=== PATIENT | female | born 1990 | race Caucasian/White ===

== ENCOUNTER 2017-08-31 07:16 | Inpatient (IN) | payer MEDICAID, SELFPAY ==
[2017-08-31] VITALS (19 sets, daily range): BP systolic 112–133; BP diastolic 55–83; PULSE 64–94; RESP 16–18; TEMP 36.1–37; O2SAT 94–100; BMI 41.1
[2017-08-31] MEDS: Lactated Ringers 1,000 ML 50 ML IV (07:10)
[2017-08-31 07:58] LABS: Absolute Lymphocyte Count 2.13 X10^3/ul (0.83-4.51); Absolute Neutrophil Count 6.7 X10^3/uL (2.0-7.7); Basophil# 0.02 X10^3/uL; Basophil% 0.2 % (0-1); Eosinophil# 0.06 X10^3/uL; Eosinophils% 0.6 % (0-5); Hematocrit 39.3 % (37-47); Hemoglobin 12.6 g/dl (12.0-15.0); Lymphocyte # 2.13 X10^3/ul (4.0); Lymphocyte % 22.2 % (19-41); Mean Corp Hgb Conc 32.1 g/gl (32-36); Mean Corpuscular Hgb 25.7 pg (27.0-32.0); Mean Corpuscular Volume 80.2 fL (81-99); Mean Platelet Vol. 9.8 fl (6.2-12.0); Monocyte# 0.67 X10^3/uL; Neutrophil # 6.69 X10^3/uL (2.7-7.7); Neutrophil % 69.6 % (47-70); Platelet Count 345 K/mm3 (150-450); RBC Distribution Width CV 14.5 % (11.6-14.6); RBC Distribution Width SD 42.1 fl (35.1-43.9); White Blood Count 9.6 K/mm3 (4.4-11.0)
[2017-08-31 08:05] LABS: POSITIVE COUNT NO; POSITIVE DIFFERENTIAL NO; POSITIVE MORPHOLOGY NO
--- NOTE | 2017-08-31 08:09 | NURSING ---
pt is prepped for sx, fhr is 145 iv to right hand #18 gauge flows easily staff in and have introduced themselves
[2017-08-31] MEDS: Lactated Ringers 1,000 ML 100 ML IV ×3 (08:10→22:15)
[2017-08-31] MEDS: Sodium Citrate/Citric Acid 30 ML UDC PO (08:25)
[2017-08-31] MEDS: Cefazolin 2 GM in 0.9% Normal Saline 100 ML IV (08:50)
[2017-08-31] MEDS: Oxytocin 30 units/NS 500 ml 30 UNITS/500 ML IV.SOLN 167 UNITS IV (09:13)
--- NOTE | 2017-08-31 10:11 | OP.PCM_ITS ---
Delivery Final GENNA: 09/06/17 Gestational age: 39 Weeks and 1 Days Indications for : Repeat Elective Description of Procedure: Patient taken to OR where spinal anesthesia was placed. She was prepped and draped in normal sterile fashion in a dorsal lithotomy position with a leftward tilt. After ensuring adequacy of anesthesia the Pfannensteil skin incision was made and carried through to the underlying fascia with a bovie. The fascia was incised in the midline and carried laterally with the Valdez scissors. The rectus muscles were in the midline and the peritoneum was entered bluntly. The bladder flap was dissected down carefully with the Metzenbaum scissors and blunt dissection. The uterus was incised in a transverse fashion and then incision extended with cephalocaudad traction. The fetus was vertex and the head was brought to the incision in the flexed position. With good fundal pressure the head easily delivered. Gentle traction placed on head to allow delivery of anterior & posterior shoulders. No excess traction placed on head. The body delivered easily. The 3VC cord was clamped and cut after 1 minute delay and the handed off to the waiting RN. The placenta was delivered w/ gentle traction and fundal massage and the uterus was exteriorized and cleared of all clots and debris. The uterine incision was closed with 1 vicryl suture in a running locked fashion. The bovie was used to further obtain further hemostasis of the uterine incision. A second imbricating layer of monocryl was placed and one additional figure of 8 suture. The uterus was returned to the peritoneal cavity. The pelvis was irrigated & then cleared of all clots and debris. The uterine incision was reexamined and found to be hemostatic. Some frances was placed over the uterine incision due to the denuded areas. The parietal peritoneum was reapproximated with running 1 vicryl suture. The fascia was closed with looped PDS suture in a running standard fashion. The subcutaneous tissue was examined & any bleeding bovie cauterized. The subcutaneous tissue was reapproximated with 3-0 vicryl suture. The skin was closed in a subcuticular fashion by the PROPERTY PRESERVATION SPECIALIST with me present in the labor and delivery suite. I performed the remainder of the procedure w/ assistance. FINDING: uterus & adnexa normal Amniotic Membrane Rupture Type: Artificial Amniotic Fluid Description: Clear Placenta Disposition: [facility] Drain: Burdick to straight drain Fluids Replaced: 1500ml Cord Entanglement: Around neck x 1, loose Nuchal Cord Compression: Without compression Cord Vessel Description: 3 Vessels Esitmated Blood Loss (ml): 700m Infant Gender: Male (1 minute): 8 (5 minute): 9 Delayed cord clamping: Yes Pre-op Antibiotic Given: Ancef 2 grams IV x1
[2017-08-31] MEDS: Ondansetron 4 MG/2 ML Vial IV (13:53)
--- NOTE | 2017-08-31 14:31 | CPS ---
nursing to start
[2017-08-31] MEDS: Ketorolac 30 MG/ML Syringe IV ×2 (15:19→22:15)
[2017-09-01] VITALS (9 sets, daily range): BP systolic 116–142; BP diastolic 47–73; PULSE 79–92; RESP 16–18; TEMP 36.4–36.9; O2SAT 96–99
[2017-09-01] MEDS: DiphenhydrAMINE 25 MG Capsule PO (01:37)
--- NOTE | 2017-09-01 02:19 | NURSING ---
1999 pt passed golf ball size clot. FF @ U, pericare completed, no additional bldg noted. Pt moving well with pad and linen changes.
[2017-09-01] MEDS: Naproxen 250 MG Tablet PO ×2 (03:49→12:07)
[2017-09-01 06:15] LABS: Hematocrit 33.7 % (37-47); Hemoglobin 10.7 g/dl (12.0-15.0); Mean Corp Hgb Conc 31.8 g/gl (32-36); Mean Platelet Vol. 9.4 fl (6.2-12.0); Platelet Count 228 K/mm3 (150-450); RBC Distribution Width CV 14.7 % (11.6-14.6); RBC Distribution Width SD 43.8 fl (35.1-43.9); Red Blood Count 4.11 M/mm3 (4.2-5.4); White Blood Count 10.2 K/mm3 (4.4-11.0)
[2017-09-01 06:16] LABS: Scan Indicated on CBC? Y/N NO
--- NOTE | 2017-09-01 08:47 | PCM.PN.BLA ---
Progress Note S: Patient sitting up in bed, working with nursing staff at this time on . Baby had difficulty latching throughout the night, recommendation for formula supplementation made by nursing staff. Patient otherwise denies issues, reports that her pain is well controlled. Has not been up to bathroom yet or had opportunity to ambulate regularly. Patient reports fatigue and that she didn't sleep a lot last night. O: VSS, Afebrile Nipples flat, widely spaced apart breasts noted. + colostrum noted. No cracks, blisters noted. Abdomen NT, dressing dry and intact Trace pedal edema, non-pitting Burdick draining clear yellow urine A: 26 y/o, POD #1, Difficulties P: 1) Continue present management 2) Consultation today Desire Dos Santos CNM
[2017-09-01] MEDS: Acetaminophen 500 MG Tablet 1000 MG PO ×2 (11:19→19:16)
[2017-09-01] MEDS: Senna/Docusate Sodium 1 Tablet PO (19:22)
[2017-09-02] VITALS (11 sets, daily range): BP systolic 124–159; BP diastolic 63–77; PULSE 67–82; RESP 14–16; TEMP 36.2–36.5; O2SAT 97–98
[2017-09-02] MEDS: Naproxen 250 MG Tablet PO ×2 (00:12→12:10)
[2017-09-02] MEDS: Acetaminophen 500 MG Tablet 1000 MG PO (03:11)
--- NOTE | 2017-09-02 08:55 | PN.OBGYN_ITS ---
Subjective: No complaints - Physical Exam General: Alert, Oriented x3 Abdomen: Soft, Non Tender, Non-Distended - ff mid & below umb; incision - bandage c/d/i Extremities: No Calf Tenderness Vital Signs Temp Pulse Resp BP Pulse Ox 97.1 F L 78 14 159/73 H 97 09/02/17 08:00 09/02/17 08:22 09/02/17 08:22 09/02/17 08:00 09/02/17 08:22 Oxygen Delivery Method Room Air Weight: 255 lb 4 oz Body Mass Index (BMI) 41.1 Intake and Output for Last 24 Hours 08/31/17 09/01/17 09/02/17 23:59 23:59 23:59 Intake Total 1480 / 1480 217 / 217 Output Total 900 / 900 3250 / 3250 Balance 580 / 580 -3033 / -3033 Assessment/Plan 26yo female POD#2 Possible d/c home later today per patient request BP - last BP elevated but may be error, check additional BPs & if normal will d/ c home
--- NOTE | 2017-09-02 08:56 | DCINST_ITS ---
Discharge Diet: No Restrictions Discharge Activity: May not drive while taking narcotic pain medications., May Shower May resume sexual activity in: 4-6 weeks Weight Bearing Status: Weight bearing as tolerated Call your doctor if your incision/area has: Continuous Slow Oozing, Sudden Increased Bleeding, Increased Pain/ Swelling, Increased Redness, Foul Smelling Discharge, Swelling at the incision site Additional Instructions: If you experience any of the following, contact your healthcare provider. * Bleeding that soaks a pad every hour for 2 hours * Fever 100.4 or higher * Unrelieved incision or abdominal pain * Swelling, redness, discharge or bleeding from your incision or episiotomy site * Your incision begins to separate * Problems urinating (including inability to urinate or burning while urinating) . * Visual changes * Severe headache * Flu-like symptoms * Pain or redness in one of both of your breasts * Pain, warmth, tenderness or swelling in your legs, especially the calf area * Frequent nausea and vomiting * Symptoms of depression or anxiety If you experience any of the following, call 911 or go to the nearest Emergency Room. * Chest pain * Problems breathing * Seizure activity * Partial or complete paralysis of a body part, slurred speech, weakness or drooping of the face, or a sudden inability to walk or hold your balance Allergies/Adverse Reactions: Allergies No Known Allergies Allergy (Verified 07/29/14 14:51) Medications to take at Discharge Dicyclomine HCl [Bentyl] 20 mg PO 4X/DAY PRN #20 tablet 07/29/14 Diphenoxylate HCl/Atropine [Lomotil 2.5-0.025 mg Tablet] 2 each PO 4X/DAY PRN PRN #20 tablet 07/29/14 Docosahexanoic Acid [ Dha] 200 mg PO DAILY 08/24/17 Oxycodone [Oxyir] 5 mg PO Q4H PRN PRN 7 Days #10 tab 09/02/17 The following prescriptions were given: Oxycodone [Oxyir] 5 mg PO Q4H PRN PRN 7 Days #10 tab PRN Reason: Mod-Severe Pain (-04/13) Follow-Up: Call to make an appointment with your doctor for an incision check in 1-2 weeks. You will also need a 6 week post- follow up appointment. Primary Care Physician: Placido Mesa DO [Primary Care Provider] -
[2017-09-02 11:59] LABS: Hematocrit 33.7 % (37-47); Hemoglobin 10.5 g/dl (12.0-15.0); Mean Corp Hgb Conc 31.2 g/gl (32-36); Mean Corpuscular Hgb 25.9 pg (27.0-32.0); Mean Platelet Vol. 9.2 fl (6.2-12.0); Platelet Count 265 K/mm3 (150-450); RBC Distribution Width CV 14.9 % (11.6-14.6); RBC Distribution Width SD 45.2 fl (35.1-43.9); Red Blood Count 4.06 M/mm3 (4.2-5.4); Scan Indicated on CBC? Y/N NO; White Blood Count 9.8 K/mm3 (4.4-11.0)
[2017-09-02 12:10] LABS: Prothrombin Time (Protime)PT. 12.9 SECONDS (11.7-14.9)
[2017-09-02 12:11] LABS: Partial Thromboplast Time 28.2 Seconds (24.1-36.2)
[2017-09-02 12:14] LABS: AST(SGOT) 14 U/L (15-37); Alanine Aminotransfer ALT/SGPT 11 U/L (13-56); Creatinine, Serum 0.59 mg/dL (0.55-1.02); EST Glomerular Filtration Rate 130 mL/min (>60); Est Glom Filt Rate - Afr Amer 157 mL/min (>60); Estimated Creatinine Clearance 134.08 ml/min; Uric Acid 5.3 mg/dL (2.6-6.0)
== END 2017-09-02 16:15 | disposition home or self-care (01) | DRG 371 ==
PROVIDERS: Admitting Provider Obstetrics & Gynecology; Family Provider Student in an Organized Health Care Education/Training Program; PCP Student in an Organized Health Care Education/Training Program; Visit Provider Obstetrics & Gynecology
DX: O34.211 Maternal care for low transverse scar from previous cesarean delivery (principal); O69.81X0 Labor and delivery complicated by cord around neck, without compression, not applicable or unspecified; Z37.0 Single live birth; Z3A.39 39 weeks gestation of pregnancy
CPT/HCPCS: 82565; 84450; 84460; 84550; 85025; 85027; 85610; 85730; 86850; 86900; 94762; 99218; J7120; G0378; J2405

== ENCOUNTER 2017-09-27 23:18 | Emergency (ER) | payer MEDICAID, SELFPAY ==
[2017-09-27 23:18] VITALS: BP 162/85; PULSE 70; RESP 18; TEMP 36.9; O2SAT 96; BMI 37.8
--- NOTE | 2017-09-27 23:42 | ED.DCSUM_ITS ---
- ER Visit Summary Date of Service: 09/27/17 Chief Complaint: [] Upper abdominal pain History of Present Illness: The patient is a 26 F dense with intermittent episodes of epigastric abdominal pain. Happened Wednesday for 20 minutes went away. Happened tonight approximately an hour ago and it finally went away after taking Tylenol. She ate pudding at 9 PM. Intermittent sharp and pressure. Worsened by laying down so she was some mild nausea. She had a C- section on the of this month. It has been healing without problems currently Physical Examination: Vital signs reviewed General: Well-nourished well-developed Head: Normocephalic atraumatic Eyes: Pupils equal round and reactive to light extraocular movements intact ENT: TMs clear no hemotympanum no trauma Neck: Nontender full range of motion Cardiovascular: Regular rate rhythm no murmurs normal S1-S2 Respiratory: No distress clear to auscultation bilaterally chest nontender Abdomen: Soft nontender nondistended normal bowel sounds no masses Back: Nontender no CVA tenderness Extremities: Nontender active range of motion ?4 extremities no trauma Skin: Normal color no trauma Neuro alert oriented cranial nerves II through XII intact normal strength sensation reflexes Test Results: [] Emergency Department Course and Treatment: [] At this time I think the patient has biliary colic. She is nontoxic. I do not feel she needs lab work. There is going to be no evidence of cholecystitis. She would like to go home to her baby is her pain resolved. She can follow-up with her family doctor for an ultrasound. It is too late to do this currently. She will return if it worsens or comes back. Will be given a short course of Percocet. Treatment Plan: [] Disposition: [] Impression: [] Upper abdominal pain suspected biliary colic This note was generated with [employer] dictation software. It may contain incorrect words, spelling, and punctuation that were not noted in review of the chart prior to signing ED Disposition - Plan for ED Patient: Chief Complaint: Abd Pain Referrals: Placido Mesa DO [Primary Care Provider] -
--- NOTE | 2017-09-27 23:44 | DCINST.ED_ITS ---
ED Disposition - Plan for ED Patient: Disposition: Home or Assisted Living Chief Complaint: Abd Pain Instructions: ED Abdominal Pain Gallstone Poss Prescriptions: Oxycodone HCl/Acetaminophen [Percocet 5/325] 1 - 2 tab PO Q6H PRN PRN 3 Days # 12 tab PRN Reason: Pain Referrals: Placido Mesa DO [Primary Care Provider] -
[2017-09-27 23:49] VITALS: BP 117/74; PULSE 80; RESP 16; O2SAT 99
== END 2017-09-27 23:49 | disposition home or self-care (01) ==
PROVIDERS: Emergency Provider Emergency Medicine; Family Provider Student in an Organized Health Care Education/Training Program; PCP Student in an Organized Health Care Education/Training Program
DX: R10.13 Epigastric pain (principal); R11.0 Nausea
CPT/HCPCS: 99282

== ENCOUNTER 2021-01-23 16:43 | Emergency (ER) | payer OTHER, SELFPAY ==
[2021-01-23 16:45] VITALS: BP 128/84; PULSE 76; RESP 16; TEMP 36.8; O2SAT 97; BMI 41.4
--- NOTE | 2021-01-23 16:58 | CT_ITS ---
STUDY: CT ABDOMEN AND PELVIS WITH CONTRAST REASON FOR EXAM: Female, 30 years old. abdominal pain -- IV PO Contrast RADIATION DOSAGE (If Supplied By Facility): CTDIvol = ( 16.14 ) mGy, DLP = ( 1147.11 ) mGycm TECHNIQUE: Transaxial images were obtained from the dome of the diaphragm to the symphysis pubis without oral contrast. Oral and amp; IV Breeza Neutral and amp; 100mL Isovue-370 was administered. Sagittal and coronal images were reconstructed. Individualized dose optimization techniques were used for this CT. COMPARISON: None. FINDINGS: Lung bases are clear. Unremarkable liver, spleen, pancreas, adrenals, and bilateral kidneys. Gallbladder not seen and likely removed. Normal appendix. Bowel loops nonobstructed. An approximately 11.8 x 8.6 x 12.1 cm adnexal cystic lesion anterior and superior to the uterus midline. This is amenable to further evaluation by MRI. Also, gynecologic consultation recommended. There is a 2.6 cm likely cyst in the right ovary. The bladder incompletely distended. No free air or free fluid. No adenopathy. Intact osseous structures. CT/Abdomen/Pelvis WITH Contrast IMPRESSION: Large cystic adnexal lesion anterior and superior to the uterus. Both benign and malignant ovarian neoplasms and peritoneal inclusion cysts are in the differential diagnosis. Further evaluation by MRI and also gynecologic consultation is recommended. Electronically Signed: Dalton Coreas MD at 19:16 EDT Tel , Service support ,
--- NOTE | 2021-01-23 16:59 | ED.VIS.GI ---
HPI HPI - GI History of Present Illness Chief Complaint: Abd Pain Detail of Chief Complaint: Abdominal pain x2 months Informant: patient Abdominal Pain/Flank Pain Current Severity: 5/10 Narrative Narrative: Patient presents to the emergency department complaint of abdominal pain that she has had for the last 2 months. Patient was seen at urgent care and was told she may have sciatica. Patient then followed up with her beauty specialist who ordered a CAT scan but she cannot have it for several more weeks. Patient describes some left lower quadrant pain that is continuous and then intermittently has severe sharp pain in her back on the left. Patient denies urinary symptoms. She is had no fever. When the pain is severe she describes nausea. Food does not affect her pain. Patient's had prior cholecystectomy. She was told when she had her gallbladder out that a little like she may have endometriosis. Patient's last menstrual period was January 07. Prior similar symptoms: Yes PFSH PFSH Medical History (Updated 01/23/21 @ 20:[address] Pacheco Burgos, DO) Migraine Home Medications hydrocodone-acetaminophen 1 tab PO Q4H PRN PRN 2 Days #10 tablet 01/23/21 [Rx Last Taken Unknown] norethindrone (contraceptive) 0.35 mg PO DAILY 01/23/21 [History Last Taken Unknown] ondansetron 4 mg PO Q8H PRN PRN #10 tab 01/23/21 [Rx Last Taken Unknown] pantoprazole 40 mg PO DAILY 01/23/21 [History Last Taken Unknown] topiramate 25 mg PO DAILY 01/23/21 [History Last Taken Unknown] Allergy/AdvReac Type Severity Reaction Status Date / Time hydromorphone [From Dilaudid] Allergy Rash Verified 01/23/21 16:45 morphine Allergy Rash Verified 01/23/21 16:45 Surgical History (Updated 01/23/21 @ 17:12 by Doug Cheney) History of History of cholecystectomy Social History Smoking Status: Never smoker ROS ROS ED Constitutional Constitutional ED: Reports systems reviewed and no addt'l complaints, except as documented; Denies body ache(s), change in weight or chills Eyes Eyes: Denies acute decrease in peripheral vision, change in vision, double vision or loss of vision ENT ENT ED: Reports none; Denies ear pain, lip swelling, loss taste/smell, neck pain, otalgia or sore throat Cardiovascular Cardiovascular: Reports none; Denies abdominal pain, chest pain with activity, leg edema, lightheadedness, palpitations, rapid heart rate or syncope Respiratory/Chest Respiratory/Chest: Reports none; Denies change in mental status, dry cough, dyspnea, hemoptysis, shortness of breath at rest or shortness of breath with exertion Gastrointestinal Gastrointestinal: Reports none, abdominal pain and nausea; Denies change in stool character, diarrhea, hematemesis, hematochezia, melena, rectal bleeding or vomiting Genitourinary Genitourinary ED: Reports none; Denies abdominal discomfort, anuria, dysuria, genital pain or polyuria Musculoskeletal Musculoskeletal: Reports none; Denies arthralgias, back pain, difficulty walking, extremity pain, muscle weakness or myalgias Integumentary Reports none; Denies abscess or rash Neurologic Neurologic: Reports none; Denies abnormal gait, confusion, focal weakness, frequent falls, headache(s), loss of vision, numbness, paresthesias, radicular pain, vertigo or weakness Psychiatric Psychiatric: Reports systems reviewed and no addt'l complaints, except as documented and none; Denies behavioral changes, confusion, difficulty concentrating, hallucinations, suicidal ideation, tactile hallucinations or visual hallucinations Endocrine Endocrinology: Denies none, cold intolerance, excessive sweating, fatigue or heat intolerance Hematologic/Lymphatic Hematologic/Lymphatic: Reports none; Denies anemia, easy bleeding or easy bruising Allergic/Immunologic Allergic/Immunologic ED: Denies as per HPI, none, lip swelling, mouth swelling, throat swelling, tongue swelling or hives EXAM Physical Exam Const Vital Signs: 01/23/21 16:45 01/23/21 19:47 Temperature 98.2 F Temperature Source Oral Pulse Rate 76 77 Respiratory Rate 16 18 Blood Pressure 128/84 H 140/89 H Blood Pressure Mean 98 106 Pulse Ox 97 99 Oxygen Delivery Method Room Air Room Air Positive well nourished and well developed General Appearance ED: well developed and NAD HEENT Reports TM's clear and moist mucous membranes normocephalic and atraumatic; Negative for trauma or tenderness Tympanic Membrane ED: Yes TM's clear Eyes PERRL and EOMs intact bilaterally General Eye ED: Negative for pale conjunctiva or scleral icterus Neck no lymphadenopathy, supple and no JVD General: Negative for tenderness Chest Wall inspection of chest normal and palpation of chest normal Chest: Negative for tenderness Resp normal respiratory effort and clear to auscultation bilaterally Effort and Inspection: Negative for respiratory distress or pain with movement Auscultation: Negative for rhonchi, wheezes or diminished lung sounds Cardio regular rate, regular rhythm, S1 normal heart sound, S2 normal heart sound and no murmurs Peripheral Pulses: pulses 2+ throughout GI normal to inspection, nondistended, normoactive bowel sounds, soft to palpation and no masses GI Narrative: Patient has diffuse tenderness palpation over left lower quadrant and suprapubic region. There is no rebound, rigidity, or peritoneal signs. Palpation: tender Back/Spine no CVA tenderness and no thoracic nor lumbar tenderness Extremity normal to inspection General Extremety ED: Negative for edema General Extremity: Negative for edema Neuro oriented x3, CN's II-XII intact bilaterally, no sensory deficits noted and gait normal Sensorium / Orientation: awake, alert, oriented to person, oriented to place and oriented to time Motor Exam: strength 5/5 throughout and strength abnormal Psych mental status grossly normal Skin no rashes or lesions noted and no wounds MDM MDM MDM Narrative Medical decision making narrative: Patient has a large adnexal cystic mass on CT. Case was discussed with SP[employer]ING [employer]AME TENDER on-call Dr. Tanner and she has that patient call the office tomorrow for an appointment. It was recommended that patient have SPINNING FRAME TENDER follow-up and possibly MRI to evaluate further. Lab Data Attestation: I reviewed the patient's lab results. Labs: Laboratory Results - last 24 hr 01/23/21 01/23/21 01/23/21 17:10 17:10 17:10 WBC 9.4 RBC 4.96 Hgb 13.7 Hct 42.0 MCV 84.7 MCH 27.6 MCHC 32.6 RDW Std Deviation 41.7 RDW Coeff of Ilia 13.6 Plt Count 341 MPV 9.4 Immature Gran % (Auto) 0.300 Neut % (Auto) 69.8 Lymph % (Auto) 21.0 [place] % (Auto) 6.7 Eos % (Auto) 1.6 Baso % (Auto) 0.6 Absolute Neuts (auto) 6.6 Absolute Lymphs (auto) 1.97 Nucleated RBC % 0 Sodium 140 Potassium 3.6 Chloride 110 H Carbon Dioxide 22.0 Anion Gap 8 BUN 13 Creatinine 0.93 Estim Creat Clear Calc 82.05 Est GFR (MDRD) Af Amer 91 Est GFR (MDRD) Non-Af 75 BUN/Creatinine Ratio 14.0 Glucose 104 Lactic Acid 1.3 Calcium 8.8 Lipase 99 Serum , Qual Urine Color Urine Clarity Urine pH Ur Specific [place] Urine Protein Urine Glucose (UA) Urine Ketones Urine Occult Blood Urine Nitrite Urine Bilirubin Urine Urobilinogen Ur Leukocyte Esterase Urine RBC Urine WBC Ur Squamous Epith Cells Urine Bacteria Urine Mucus 01/23/21 01/23/21 17:10 17:55 WBC RBC Hgb Hct MCV MCH MCHC RDW Std Deviation RDW Coeff of Ilia Plt Count MPV Immature Gran % (Auto) Neut % (Auto) Lymph % (Auto) [place] % (Auto) Eos % (Auto) Baso % (Auto) Absolute Neuts (auto) Absolute Lymphs (auto) Nucleated RBC % Sodium Potassium Chloride Carbon Dioxide Anion Gap BUN Creatinine Estim Creat Clear Calc Est GFR (MDRD) Af Amer Est GFR (MDRD) Non-Af BUN/Creatinine Ratio Glucose Lactic Acid Calcium Lipase Serum , Qual NEGATIVE Urine Color Yellow Urine Clarity Sl. Cloudy Urine pH 6.0 Ur Specific [place] 1.010 Urine Protein Negative Urine Glucose (UA) Normal Urine Ketones Negative Urine Occult Blood Negative Urine Nitrite Negative Urine Bilirubin Negative Urine Urobilinogen Normal Ur Leukocyte Esterase 100 H Urine RBC 0 SEEN Urine WBC 0-5 SEEN Ur Squamous Epith Cells 0-5 SEEN Urine Bacteria 1+ Urine Mucus 0 SEEN Radiography Diagnostic Testing: Radiology Impression Abdomen/Pelvis CT 01/23/21 16:58 IMPRESSION: Large cystic adnexal lesion anterior and superior to the uterus. Both benign and malignant ovarian neoplasms and peritoneal inclusion cysts are in the differential diagnosis. Further evaluation by MRI and also gynecologic consultation is recommended. Electronically Signed: Dalton Coreas MD at 19:16 EDT Tel , Service support , Discharge Plan Triage Chief Complaint: Abd Pain ED Provider: Pacheco Burgos Dx/Rx/DC Orders Clinical Impression: Adnexal mass, Abdominal pain Instructions: Abdominal Pain, Ovarian Cysts Prescriptions: New ondansetron [ondansetron] 4 MG tablet 4 mg PO Q8H PRN PRN (Reason: Nausea) Qty: 10 RF: 0 hydrocodone-acetaminophen [hydrocodone-acetaminophen] 1 TABLET tablet 1 tab PO Q4H PRN PRN (Reason: Pain) 2 Days Qty: 10 RF: 0 No Action topiramate 25 mg tablet 25 mg PO DAILY RF: 0 pantoprazole 40 mg tablet,delayed release (DR/EC) 40 mg PO DAILY RF: 0 norethindrone (contraceptive) 0.35 mg tablet 0.35 mg PO DAILY RF: 0 Primary Care Provider: Placido Mesa Referrals: Placido Mesa DO [Primary Care Provider] - Disposition Disposition: Home, Self Care
[2021-01-23] MEDS: 0.9% Normal Saline 1,000 ML 125 ML IV (17:11)
[2021-01-23 17:33] LABS: Absolute Lymphocyte Count 1.97 X10^3/uL (0.83-4.51); Absolute Neutrophil Count 6.6 X10^3/uL (2.0-7.7); Basophil# 0.06 X10^3/uL; Basophil% 0.6 % (0-1); Eosinophil# 0.15 X10^3/uL; Eosinophils% 1.6 % (0-5); Hemoglobin 13.7 g/dL (12.0-15.0); Lymphocyte # 1.97 X10^3/ul (0.83-4.51); Mean Corp Hgb Conc 32.6 g/dL (32-36); Mean Corpuscular Hgb 27.6 pg (27.0-32.0); Mean Corpuscular Volume 84.7 fL (81-99); Mean Platelet Vol. 9.4 fl (6.2-12.0); Monocyte# 0.63 X10^3/uL; Monocyte% 6.7 % (0-10); NRBC Flagged by Analyzer 0 % (0-5); Neutrophil # 6.56 X10^3/uL (2.7-7.7); Neutrophil % 69.8 % (47-70); Platelet Count 341 K/mm3 (150-450); RBC Distribution Width CV 13.6 % (11.6-14.6); RBC Distribution Width SD 41.7 fl (35.1-43.9); Red Blood Count 4.96 M/mm3 (4.2-5.4); White Blood Count 9.4 K/mm3 (4.4-11.0)
[2021-01-23 17:46] LABS: Internal QC Validated? YES +Cl - CLEAR BKGD; Pregnancy, Serum, hCG Quali. NEGATIVE Negative
[2021-01-23 17:49] LABS: Anion Gap 8 (5-15); BUN 13 mg/dL (7-18); Calcium,Total 8.8 mg/dL (8.5-10.1); Chloride 110 mmol/L (98-107); Creatinine, Serum 0.93 mg/dL (0.55-1.02); EST Glomerular Filtration Rate 75 mL/min (>60); Est Glom Filt Rate - Afr Amer 91 mL/min (>60); Estimated Creatinine Clearance 82.05 ml/min; Glucose 104 mg/dL (74-106); Lipase 99 U/L (73-393); Potassium 3.6 mmol/L (3.5-5.1); Sodium Level 140 mmol/L (136-145)
[2021-01-23 17:55] LABS: Lactic Acid 1.3 mmol/L (0.4-1.9)
[2021-01-23 18:03] LABS: Mucous, Urine 0 SEEN /hpf (<or=2+); Red Blood Cells-Urine 0 SEEN /hpf (0-5)
[2021-01-23] MEDS: Ketorolac 30 MG/ML Syringe IV (18:08)
[2021-01-23 18:12] LABS: Color, Urine Yellow (Yellow); Glucose, Dipstick Normal (Normal); Ketone-Dipstick Negative (Negative); Leukocyte Esterase-Dipstick 100 /ul (Negative); Nitrite-Dipstick Negative (Negative); Occult Blood-Urine Negative /ul (Negative); Protein-Dipstick Negative (Negative); Urine Bilirubin Dipstick Negative (Negative); Urine Clarity Sl. Cloudy (Clear); Urine Urobilinogen Normal (Normal)
[2021-01-23 18:58] LABS: Squamous Epithelial Cells - UA 0-5 SEEN /hpf (5-10)
[2021-01-23 18:59] LABS: Bacteria 1+ /hpf (None Seen); White Blood Cells 0-5 SEEN /hpf (0-5)
[2021-01-23 19:47] VITALS: BP 140/89; PULSE 77; RESP 18; O2SAT 99
== END 2021-01-23 20:14 | disposition home or self-care (01) ==
PROVIDERS: Emergency Provider Emergency Medicine; PCP Student in an Organized Health Care Education/Training Program
DX: R10.32 Left lower quadrant pain (principal); M54.9 Dorsalgia, unspecified; Z79.899 Other long term (current) drug therapy; Z90.49 Acquired absence of other specified parts of digestive tract; G43.909 Migraine, unspecified, not intractable, without status migrainosus
CPT/HCPCS: 74177; 80048; 81001; 83605; 83690; 84703; 85025; 96361; 96374; 99283; J7030; Q9967; A4216

== ENCOUNTER 2021-02-27 10:49 | Day surgery (SDC) | payer OTHER, SELFPAY ==
[2021-02-27 11:14] LABS: Internal QC Validated? YES +Cl - CLEAR BKGD; Pregnancy, Urine Negative Negative
[2021-02-27 11:25] VITALS: BP 127/75; PULSE 91; RESP 16; TEMP 36.9; O2SAT 100; BMI 40.6
[2021-02-27] MEDS: Lactated Ringers 1,000 ML 100 ML IV (11:30)
--- NOTE | 2021-02-27 12:11 | PCM.HP.OB ---
HPI - General HPI Narrative BRANNON ZARAGOZA, is a 30 F who presents for scheduled surgery for adnexal cyst. PFSH PFSH Medical History (Updated 02/20/21 @ 14:25 by Darlin Diaz) Dietary restriction Gastric reflux Migraine Non-smoker Shortness of breath on exertion Wears glasses Home Medications hydrocodone-acetaminophen 1 tab PO Q4H PRN PRN 2 Days #10 tablet 01/23/21 [Rx Last Taken Unknown] norethindrone (contraceptive) 0.35 mg PO DAILY 01/23/21 [History Last Taken Unknown] ondansetron 4 mg PO Q8H PRN PRN #10 tab 01/23/21 [Rx Last Taken Unknown] pantoprazole 40 mg PO DAILY 01/23/21 [History Last Taken Unknown] topiramate 75 mg PO QHS 01/23/21 [History Last Taken Unknown] Allergy/AdvReac Type Severity Reaction Status Date / Time hydromorphone [From Dilaudid] Allergy Rash Verified 02/27/21 11:24 morphine Allergy Rash Verified 02/27/21 11:24 Surgical History (Updated 02/20/21 @ 14:15 by Darlin Diaz) History of History of cholecystectomy History of colonoscopy Social History Smoking Status: Never smoker History Elective abortions Hx Para 1 Spontaneous abortions Hx # Term Pregnancies Ectopic pregnancies Hx # Pregnancies Multiple births # of living children Vital Signs Vital Signs Vital Signs: 02/27/21 11:25 Temperature 98.4 F Temperature Source Temporal Pulse Rate 91 Respiratory Rate 16 Respiratory Pattern Normal Blood Pressure 127/75 H Blood Pressure Mean 92 Blood Pressure Source Monitor Blood Pressure Position Semi-Fowlers Blood Pressure Location Left Arm Pulse Ox 100 Oxygen Delivery Method Room Air Weight Weight: 251 lb 15.814 oz Body Mass Index (BMI) 40.6 Labs Labs Labs: Blood Type A POSITIVE Antibody Screen NEGATIVE Hct 42.0 % (37-47) Hgb 13.7 g/dL (12.0-15.0) Rhogam given: No Assessment & Plan (1) Adnexal mass: PLAN: See scanned in H&P on 02/21/21. Patient has large left ovarian cyst noted on imaging. The cyst is simple appearing. H/o endometriosis. Patient declined referral to [facility]. Discussed laparoscopic ovarian cystectomy, possible oophorectomy, possible salpingectomy, possible laparotomy and patient desires to proceed. Consent was signed about discussion of r/b/a. Patient was seen in pre op and surgery reviewed. No changes noted to H&P. To proceed with surgery as planned. (2) Abdominal pain:
--- NOTE | 2021-02-27 12:35 | OV_PTH ---
PATIENT: BRANNON ZARAGOZA LOC: [facility] [place] U#:[id number] AGE/SX: 30/F ROOM: RE02/27/[address]: Dr. Izabella Denson DO : 1990 BED: DIS: 02/27/2021 SPEC #: [id number] RECD: 02/28/21 10:00 STATUS: YADY LENY #: [id number] RABIA: 02/27/21 12:[address]: Izabella Denson DEPT: SURGICAL PATHOLOGY RECD BY: Yoli Davalos ENTERED: 02/28/21 10:34 SP TYPE: OVARY OTHR DR: Dr. Placido Mesa DO Tissues: OVARIAN CYST Procedures: Special Stain Group II Mucicarmine Stain (control) Surgery Specimen Level IV HEADER OPERATION: Laparoscopic ovarian cystectomy PRE-OP DIAGNOSIS: Left ovarian cyst TISSUE SUBMITTED: Left ovarian cyst MICROSCOPIC DIAGNOSIS Left ovarian cyst, cystectomy: Consistent with seromucinous cystadenofibroma. See comment. AM:enedelia 03/03/2021 COMMENT Mucin stain with matched control was used in the evaluation of this case. MICROSCOPIC DESCRIPTION Slides are reviewed. GROSS DESCRIPTION Received in fixative is one container labeled with the patient's name and designated left ovarian cyst. The specimen consists of a previously opened cyst measuring 11 x 7 x 0.5 cm. One surface of the cyst shows focal hemorrhagic area. The cyst appears to be wrinkled. No papillations are identified. The cyst wall could not be properly oriented due to the previously opened nature of the specimen. The cyst wall measures up to 0.2 cm in thickness. Bar Assistant sections are submitted in three cassettes. / SJ:enedelia 02/28/21 TC:5 CPT: 65085, 08582
[2021-02-27] MEDS: Bupivacaine Mpf 0.5% 30 ML VIAL (13:50)
--- NOTE | 2021-02-27 14:12 | PCM.DC ---
Discharge Instructions Diet Discharge Diet: No restrictions Activity Discharge Activity: May Not Drive (Until you feel strong enough to slam on a brake or turn a steering wheel sharply) and May Shower Return to work on:: 03/03/21 May resume sexual activity in: 1-2 weeks (No intercourse until bleeding stops) Weight Bearing Status: Weight bearing as tolerated Lifting Restrictions: Nothing greater than 10-15 lbs Dressing / Incision Call your doctor if your incision/area has: Sudden Increased Bleeding, Increased Pain/ Swelling, Increased Redness, Foul Smelling Discharge and Swelling at the incision site Call your doctor if you observe: Fever of 101 or Higher, Numbness or Tingling, Inability to urinate, Inability to have a bowel movement, Using more than 1 pad per hour, Shortness of breath, Dizziness, Fainting spells, Swelling in the ankles, Chest pain, Increased palpitations (irregular heartbeat), Calf discomfort and Uncontrolled pain Suture Line Care: Avoid Pulling/Pushing and Avoid Pinching/Bending Cleanse incision/area with: Soap & Water Follow Up Care When: 1-2 weeks Test Results: Test results from this visit will be discussed in further detail at your follow-up appointment, if applicable. Discharge Plan Admission Primary Reason for Your Visit: Ovarian cystectomy Attending Provider: Izabella Denson Primary Care Provider: Placido Mesa Instructions Patient Instructions: Managing Post-Op Pain at Home Discharge Orders/Prescriptions Prescriptions: New oxycodone-acetaminophen [Percocet] 5-325 mg tablet 1 tab PO Q8H PRN (Reason: pain) 7 Days Qty: 10 RF: 0 Continued topiramate 25 mg tablet 75 mg PO QHS RF: 0 pantoprazole 40 mg tablet,delayed release (DR/EC) 40 mg PO DAILY RF: 0 norethindrone (contraceptive) 0.35 mg tablet 0.35 mg PO DAILY RF: 0 Discontinued ondansetron [ondansetron] 4 MG tablet 4 mg PO Q8H PRN PRN (Reason: Nausea) Qty: 10 RF: 0 hydrocodone-acetaminophen [hydrocodone-acetaminophen] 1 TABLET tablet 1 tab PO Q4H PRN PRN (Reason: Pain) 2 Days Qty: 10 RF: 0 Referrals / Follow Up: Placido Mesa DO [Primary Care Provider] - Disposition Disposition (needs filled in before D/C Order can be placed): Home, Self Care
[2021-02-27 14:18] VITALS: BP 127/75; BP 130/68; PULSE 92; RESP 16; TEMP 36.4; O2SAT 97
[2021-02-27 14:30] VITALS: BP 127/75; BP 135/75; PULSE 102; RESP 18; O2SAT 100
[2021-02-27 14:45] VITALS: BP 127/75; BP 128/99; PULSE 104; RESP 18; TEMP 36.1; O2SAT 98
--- NOTE | 2021-02-27 15:07 | PCM.OP.BLANK ---
Problems Associated Problem List Diagnoses (1) Adnexal mass: (2) Abdominal pain: Operative Report Date of Procedure: 02/27/21 Preoperative diagnosis: Adnexal cyst, pelvic pain Postoperative diagnosis: As above Surgeon: Izabella Denson DO Healthcare Receptionist: Bianka Blanc MD Operation performed: Laparoscopic left ovarian cystectomy Findings: Enlarged simple appearing left ovarian cyst measuring about 10 cm in size. A second smaller simple appearing cyst on the left ovary was also noted measuring about 1 cm in size. No endometriosis lesions noted. Normal-appearing uterus, bilateral fallopian tubes, right ovary. Specimen sent: Ovarian cyst and cyst wall Estimated blood loss: 50 cc Fluids: 1700 mL Description: Patient was taken to the operating room where she was placed under general anesthesia. She was prepped and draped in the dorsal lithotomy position in yellowfin stirrups. A weighted speculum was placed in the vagina and the anterior lip of the cervix was grasped with a single-tooth tenaculum. A Topher cannula was then inserted to the cervix without difficulty for uterine manipulation. The weighted speculum was removed. Gloves were then changed and attention was turned to the abdominal portion of the procedure. A 5 mm infraumbilical incision was made. The abdominal cavity was then entered under direct visualization using the laparoscope. Once confirmed intraperitoneal, CO2 insufflation was initiated. A 5 mm right lateral port was placed. A 5 mm left lateral port was placed. Examination of the pelvis revealed findings as noted above. Using suction, the enlarged left ovarian cyst was entered sharply and drained for clear mucinous fluid. The cyst was with blunt dissection. The cyst wall was identified and removed using blunt dissection with countertraction. A second smaller cyst was noted. The cyst was entered using electrocautery. The cyst wall was identified and removed using blunt dissection with countertraction as well. A hemostatic agent was placed over the ovarian bed, after being irrigated and dried. Bleeding was hemostatic. A 10 mm port was then placed infraumbilically so that the Endo Catch bag was able to be placed through that 10 mm port. The cyst and cyst wall components were placed in the bag and removed from the pelvis. Hemostasis was then again noted. All trocars were removed. The fascia of the 10 mm umbilical incision was closed in a running fashion using 2-0 Vicryl. The skin was then closed with Monocryl. Glue was placed over the incision sites. All instruments removed from the vagina. Vaginal sweep was performed. Instrument and sponge counts were correct. Patient was taken to recovery in stable condition.
[2021-02-27 16:40] VITALS: BP 127/75; BP 132/84; PULSE 103; RESP 18; TEMP 36.2; O2SAT 100
== END 2021-02-27 16:42 | disposition home or self-care (01) ==
LOC: SDC 10:51 → AC 10:53
PROVIDERS: Anesthesiology; PCP Student in an Organized Health Care Education/Training Program; Visit Provider Obstetrics & Gynecology
PROC: (CPT 58662; principal; 2021-02-27 12:20)
DX: D27.1 Benign neoplasm of left ovary (principal); G43.909 Migraine, unspecified, not intractable, without status migrainosus; K21.9 Gastro-esophageal reflux disease without esophagitis; Z79.899 Other long term (current) drug therapy
CPT/HCPCS: 00840; 58662; 81025; 86850; 86900; 86901; 88305; 88313; J7120; J2405

== ENCOUNTER → 2021-11-25 | Outpatient (CLI) | payer OTHER, SELFPAY ==
[2021-11-25 08:39] LABS: Bacteria 0 SEEN /hpf (None Seen); Mucous, Urine 0 SEEN /hpf (<or=2+); White Blood Cells 0 SEEN /hpf (0-5)
[2021-11-25 09:28] LABS: Color, Urine Yellow (Yellow); Glucose, Dipstick Normal (Normal); Ketone-Dipstick Negative (Negative); Leukocyte Esterase-Dipstick Negative /ul (Negative); Nitrite-Dipstick Negative (Negative); Occult Blood-Urine Negative /ul (Negative); Protein-Dipstick Negative (Negative); Specific Gravity, Urine 1.015 (1.002-1.030); Urine Bilirubin Dipstick Negative (Negative); Urine Clarity Sl. Cloudy (Clear); Urine Urobilinogen Normal (Normal)
[2021-11-25 09:35] LABS: Squamous Epithelial Cells - UA 10-25 SEEN /hpf (5-10)
[2021-11-25 09:36] LABS: Amorphous Sediment 2+; Red Blood Cells-Urine 0-5 SEEN /hpf (0-5)
== END | disposition home or self-care (01) ==
LOC: PAVLAB 08:34
PROVIDERS: PCP Student in an Organized Health Care Education/Training Program; Referring Provider Obstetrics & Gynecology; Visit Provider Obstetrics & Gynecology
DX: R32 Unspecified urinary incontinence (principal)
CPT/HCPCS: 81001; 87086; 87088

== ENCOUNTER 2023-12-15 08:40 | Day surgery (SDC) | payer BC, SELFPAY ==
[2023-12-15 09:04] LABS: Internal QC Validated? YES +Cl - CLEAR BKGD; Pregnancy, Urine Negative Negative
--- NOTE | 2023-12-15 09:05 | PCM.HP.BLA ---
History and Physical Date of Admission: 12/15/23 Date of Service: 11/17/23 MR#: [id number] Acct: [id number] Name: BRANNON ZARAGOZA Rep #: [id number] : 1990 Provider: Dr. Donna Melendez MD Age/Sex: 32/F Location: [facility] Status: Signed Intake Vital Signs 02/27/2111:25 11/17/2411:01 Height 5 ft 6 in BP 134/84 H Blood Pressure Location Rt brachial Position Sitting Respiration 17 Pulse 84 Pulse Source Monitor Pulse Oximetry (%) 99 Oxygen Delivery Method room air Intake Visit Reasons: EGD,GERD Chief Complaint: EGD/GERD Is patient in pain?: No Allergies hydromorphone (From Dilaudid) Allergy (Verified 11/17/23 12:02) Rashmorphine Allergy (Verified 11/17/23 12:02) Rash Medications ?Medication ?Instructions ?Recorded ?Confirmed ?Type norethindrone (contraceptive) 0.35 0.35 mg PO DAILY bc 01/23/21 02/27/21 History mg tablet oxycodone-acetaminophen 5 mg-325 1 tab PO Q8H PRN pain 7 days #10 02/27/21 Rx mg tablet (Percocet) tabs nortriptyline 25 mg capsule 25 mg PO DAILY 11/17/23 11/17/23 History (Pamelor) omeprazole 40 mg capsule,delayed 40 mg PO QDAY #30 caps 11/17/23 11/17/23 Rx release topiramate 100 mg tablet (Topamax) 100 mg PO DAILY 11/17/23 11/17/23 History PFSH Medical History Wears glasses Dietary restriction Gastric reflux Non-smoker Shortness of breath on exertion Migraine Surgical History (Updated 02/20/21 @ 14:15 by Darlin Diaz) History of colonoscopy History of History of cholecystectomy Family History (Updated 11/17/23 @ 12:01 by Violet Carreon) Grandmother Breast cancer Colon cancer DiabetesFather DiabetesDaughter Seizures Social History Smoking Status: Never smoker substance use type: does not use HPI HPI HPI: 32-year-old female presents due to reflux for EGD. Patient never had previous EGD. Patient has been on Protonix for a while. Patient states that it may not be working as well as it did initially. She will have some burning in her epigastrium in the evenings. Patient states she does have the head of her bed inclined tries to do smaller meals as well. ROS General General: Yes weight change; No appetite, fatigue, colon cancer, breast cancer or weakness HEENT HEENT: No difficulty swallowing, eye injury, eye surgery, swollen glands or hoarseness Endo Endocrine: No thyroid disease, diabetes mellitus, thyroid cancer, Hair loss, heat intolerance or cold intolerance Skin Skin: No rash or changing moles Musc Musculoskeletal: No back problems, arthritis, rheumatoid arthritis, gout or joint pain Cardio Cardiovascular: No murmur, pacemaker, heart disease, atrial fibrillation, high blood pressure, heart attack, heart stent, palpitations, shortness of breat with exertion or chest pain Psych Psychiatric: No depression, anxiety or hearing voices Resp Respiratory: No shortness of breath, No sleep apnea, No cough, No COPD, No asthma, No emphysema and No wheezing Gastro Gastrointestinal: No abdominal pain, No nausea or vomiting, No diarrhea, No constipation, No blood in stool, Yes acid reflux, Yes hemorrhoids, No ulcers, No gallbladder problem and No black,tarry stools Dain Hematologic: No blood thinners, No blood disorders, No bleeding, No anemia and No blood clots Neuro Neurologic: No system reviewed and no additional complaints, except as documented, No as per HPI, No abnormal gait, No abnormal hearing, No abnormal movements, No abnormal speech, No behavioral changes, No burning sensations, No confusion, No convulsions, No disequilibrium, No dizziness, No localized weakness, No frequent falls, No headache(s), No lack of coordination, No loss of vision, No memory loss, No numbness, No other visual disturbances, No radicular pain, No restless legs, No sensory deficit, No syncope, No tingling, No tremor(s), No weakness and No other Exam Const General: cooperative, healthy appearing, comfortable and no acute distress [facility] Head: normocephalic and atraumatic Neck Neck: supple Resp Effort & Inspection: normal respiratory effort Cardio Rate: regular rate GI Inspection: non-distended Palpation: soft and nontender Skin General: no rashes or lesions noted Neuro General: CN's II-XI intact bilaterally Extrem General: normal to inspection Psych Mental Status: mental status grossly normal Attitude: cooperative Assessment and Plan Assessment and Plan (1) GERD (gastroesophageal reflux disease): Status: Acute Medications: New omeprazole swallow whole; do not crush, chew, dissolve, cut, break 40 mg PO QDAY 30 caps 5RF Plan Will plan to switch patient from Protonix 40 mg p.o. daily to omeprazole 40 mg p.o. daily. I have discussed the above with the patient. I have offered the patient esophagogastroduodenoscopy for evaluation. I have explained the risks/benefits of the procedure and described the procedure. I have discussed the risks with the patient, including but not limited to: infection, bleeding, perforation of the GI tract requiring emergency surgery, inability to complete the procedure, injury to any internal organs, complications of anesthesia, etc. - the patient understands and agrees to proceed. I have answered all the patient's questions to the patient's satisfaction and the patient has no further questions. Donna Melendez M.D. Pager: [phone] [facility] [address] [place] [address], [address] [place] [address] Office: [phone] Coding Level of Care Code Off vis,new,level 3 Diagnoses GERD (gastroesophageal reflux disease) K21.9 11/17/23 1227 <Electronically signed by Donna Melendez MD> Date Donna Melendez MD
[2023-12-15 09:08] VITALS: BP 126/88; PULSE 84; RESP 16; TEMP 36.4; O2SAT 99; BMI 43.6
--- NOTE | 2023-12-15 09:12 | PCM.PRE.AN2 ---
ASA Classification* ASA Classification ASA Classification: 2 Assessment & Plan Anesthesia* Anesthesia Assessment Anesthesia Assessment: Discussed sedation and/or anesthesia options, risks, benefits, and alternatives with patient/parents/legal guardian. Questions invited. The patient/parents/legal guardian/POA seems to understand and agrees to proceed with anesthesia plan. Reviewed the physical assessment, medical history, allergy history and patient home medications list prior to surgery/procedure/anesthetic and documented any changes. Performed airway and anesthesia risk assessments. Anesthesia Type Anesthesia Type: MAC Pre-Assessment Diagnosis/Proposed Procedure Planned Operative Procedure(s): EGD Anesthesia History Anesthesia History - shirt sorter: Anesthesia History - shirt sorter Hx Hospitalization No 12/08/23 12:13 Any Problems With Anesthesia No 12/08/23 12:13 Cholinesterase deficiency No 12/08/23 12:13 You/Your Family Experience No 12/08/23 12:13 fever (hyperthermia) with Relationship Recent Exposure to Contagious No 02/27/21 11:25 Disease Does patient have nerve No 12/08/23 12:13 stimulator Patient instructed to have device shut off --Does patient have Pacemaker or ICD? When Was Last Pacemaker Check QUESTION #4 FULL TEXT: You/Your Family Experience fever (hyperthermia) with Anesthesia Last Oral Intake Last Oral intake: Last Oral Intake NPO since Meds taken in AM with sips of water? Meds patient instructed to take am of surgery PONV PONV - shirt sorter: PONV - shirt sorter Female Yes 12/08/23 12:13 HX of Motion Sickness Yes 12/08/23 12:13 HX of N/V After Surgery No 12/08/23 12:13 Non-Smoker Yes 12/08/23 12:13 Duration of Surgery greater No 12/08/23 12:13 than 60 minutes Number of Risk Factors 3 12/08/23 12:13 PONV Score Moderate Risk 12/08/23 12:13 Height & Weight Height & Weight: Anesthesia: Height & Weight Height 1.68 m 02/27/21 11:25 Respiratory Assessment Respiratory Assessment - shirt sorter: Respiratory Tract Infection Hx - shirt sorter Hx Respiratory Tract Infection No 12/08/23 12:13 STOP Sleep Apnea STOP Sleep Apnea - shirt sorter: STOP Sleep Apnea - shirt sorter Hx Hypertension No 12/08/23 12:13 Hx Sleep Apnea No 12/08/23 12:13 CPAP BIPAP Do you snore loudly (louder No 12/08/23 12:13 than talking or can be heard Do you often feel tired/ No 12/08/23 12:13 fatigued/ sleepy during daytime? Has anyone observed you stop No 12/08/23 12:13 breathing during sleep? STOP Results Negative 12/08/23 12:13 QUESTION #5 FULL TEXT : Do you snore loudly (louder than talking or can be heard through closed doors)? Tobacco Use History Tobacco Use History - shirt sorter: Tobacco Use History - shirt sorter Tobacco Use Smoking Status Never smoker 12/08/23 12:13 Hx Tobacco Use No 12/08/23 12:13 Years Smoking Packs Smoked per Day Smoking Cessation Date was within the last 15 years Hx Smoking Cessation Date Hx Smoking Cessation Counseling Hematologic Medial History Hematologic Hx - shirt sorter: Hematologic Medical Hx - radio tester Hx of Blood Transfusion No 12/08/23 12:13 Hx of Transfusion in last 3 No 12/08/23 12:13 Months Date of Last Transfusion (if within last 3 months) Ever experience any problems No 12/08/23 12:13 with transfusion(s)? Specify any problems Hx of Preganancy in last 3 No 12/08/23 12:13 Months Nurse Filling Out Transfusion VCHRISTIN 12/08/23 12:13 & Questions: Date: 12/08/23 12/08/23 12:13 Time: 12:14 12/08/23 12:13 Patient unable to answer at this time (ie. confused, unrespo /Reproduction History /Reproductive History - shirt sorter: /Reproductive Hx- shirt sorter Hx Now No 12/08/23 12:13 Gestational Age (in weeks): EDC: Hx Hx Para Hx Section SAB No 12/08/23 12:13 Active Medications Active Medications: Current Medications Generic Name Dose Route Start Last Admin Trade Name Freq PRN Reason Stop Dose Admin Lactated Ringer's 1,000 mls @ 15 mls/hr 12/15/23 08:45 IV .Q48H REPLACED BY [facility] Anesthesia Focused Assessment* Airway Assessment Mouth opens (cm): 3 Mallampati Score: II Focused Labs Anesthesia Preop lab: CBC WBC 9.4 K/mm3 (4.4-11.0) 01/23/21 17:10 RBC 4.96 M/mm3 (4.2-5.4) 01/23/21 17:10 Hgb 13.7 g/dL (12.0-15.0) 01/23/21 17:10 Hct 42.0 % (37-47) 01/23/21 17:10 Plt Count 341 K/mm3 (150-450) 01/23/21 17:10 CHEMISTRY Potassium 3.6 mmol/L (3.5-5.1) 01/23/21 17:10 Sodium 140 mmol/L (136-145) 01/23/21 17:10 BUN 13 mg/dL (7-18) 01/23/21 17:10 Creatinine 0.93 mg/dL (0.55-1.02) 01/23/21 17:10 Glucose 104 mg/dL (74-106) 01/23/21 17:10 COAG PT 12.9 SECONDS (11.7-14.9) 09/02/17 11:47 Urine Test Negative Negative 12/15/23 08:55 Review of Systems (Anesthesia) ROS Narrative System reviewed and no additional complaints, except as documented. [facility] Medical History Wears glasses Dietary restriction Gastric reflux Non-smoker Shortness of breath on exertion Migraine Home Medications ?Medication ?Instructions ?Recorded ?Last Taken ?Type norethindrone (contraceptive) 0.35 0.35 mg PO DAILY bc 01/23/21 12/14/23 History mg tablet nortriptyline 25 mg capsule 25 mg PO DAILY 11/17/23 12/14/23 History (Pamelor) omeprazole 40 mg capsule,delayed 40 mg PO QDAY #30 caps 11/17/23 12/14/23 Rx release topiramate 100 mg tablet (Topamax) 100 mg PO DAILY 11/17/23 12/14/23 History Allergy/AdvReac Type Severity Reaction Status Date / Time hydromorphone (From Dilaudid) Allergy Rash Verified 12/15/23 09:03 morphine Allergy Rash Verified 12/15/23 09:03 Family History Grandmother Breast cancer Colon cancer Diabetes Father Diabetes Daughter Seizures Surgical History Hx of ovarian cystectomy History of colonoscopy History of History of cholecystectomy Social History Smoking Status: Never smoker substance use type: does not use
[2023-12-15] MEDS: Lactated Ringers 1,000 ML 15 ML IV (09:13)
--- NOTE | 2023-12-15 09:55 | OP.EGD_ITS ---
Patient Name: Yareli Alanis Procedure Date: 12/15/2023 9:36 AM Date of : 1990 Age: 33 Procedure: Upper GI endoscopy Indications: Heartburn Providers: Donna Melendez MD Medicines: Monitored Anesthesia Care Patient Profile: This is a 33 year old female. Complications: No immediate complications. Procedure: Pre-Anesthesia Assessment: - Prior to the procedure, a History and Physical was performed, and patient medications and allergies were reviewed. The patient's tolerance of previous anesthesia was also reviewed. The risks and benefits of the procedure and the sedation options and risks were discussed with the patient. All questions were answered, and informed consent was obtained. Prior Anticoagulants: The patient has taken no anticoagulant or antiplatelet agents. ASA Grade Assessment: Per anesthesia. After reviewing the risks and benefits, the patient was deemed in satisfactory condition to undergo the procedure. After obtaining informed consent, the endoscope was passed under direct vision. Throughout the procedure, the patient's blood pressure, pulse, and oxygen saturations were monitored continuously. The Endoscope was introduced through the mouth, and advanced to the second part of duodenum. The upper GI endoscopy was accomplished without difficulty. The patient tolerated the procedure well. Scope In: 9:45:49 AM Scope Withdrawal Time 0 hours 0 minutes 5 seconds Scope Out: 9:50:01 AM Total Procedure Duration Time 0 hours 4 minutes 12 seconds Findings: The Z-line was variable and was found 37 cm from the incisors. Mildly erythematous mucosa without bleeding was found in the gastric antrum. Biopsies were taken with a cold forceps for histology. Biopsies were taken with a cold forceps for Helicobacter pylori cultures. The examined duodenum was normal. The cardia and gastric fundus were normal on retroflexion. Impression: - Z-line variable, 37 cm from the incisors. - Erythematous mucosa in the antrum. Biopsied. - Normal examined duodenum. Recommendation: - Await pathology results. - Discharge patient to home. - Resume previous diet. - Use Protonix (pantoprazole) 40 mg PO daily. - Continue present medications. Procedure Code(s): --- Professional --- 20855, Esophagogastroduodenoscopy, flexible, transoral; with biopsy, single or multiple Diagnosis Code(s): --- Professional --- K22.89, Other specified disease of esophagus K31.89, Other diseases of stomach and duodenum R12, Heartburn CPT copyright 2021 [employer]. All rights reserved. The codes documented in this report are preliminary and upon php magento developer review may be revised to meet current compliance requirements. MD Donna Davis MD 12/15/2023 9:55:32 AM This report has been signed electronically. Number of Addenda: 0 Note Initiated On: 12/15/2023 9:36 AM
--- NOTE | 2023-12-15 09:55 | OP.CCLET_ITS ---
12/15/2023 Placido Mesa [address] [place] [address] Re : Upper GI endoscopy procedure for Yareli Alanis Dear Dr. Mesa This procedure was performed on Friday, December 15, 2023. My impressions and recommendations are as follows: Impressions : - Z-line variable, 37 cm from the incisors. - Erythematous mucosa in the antrum. Biopsied. - Normal examined duodenum. Recommendations : - Await pathology results. - Discharge patient to home. - Resume previous diet. - Use Protonix (pantoprazole) 40 mg PO daily. - Continue present medications. My findings are described in the full procedure note, which is enclosed. If I can be of further assistance, please feel free to contact me at Doctor phone number(s): , Work: . Sincerely, MD Donna Davis MD 12/15/2023 9:55:32 AM This report has been signed electronically.
[2023-12-15 10:00] VITALS: BP 126/88; BP 132/46; PULSE 79; RESP 16; TEMP 36.3; O2SAT 100
--- NOTE | 2023-12-15 10:00 | EGD_PTH ---
PATIENT: BRANNON ZARAGOZA LOC: [facility] U#:[id number] AGE/SX: 33/F ROOM: RE12/15/[address]: Dr. Donna Melendez MD : 1990 BED: DIS: 12/15/2023 SPEC #: [id number] RECD: 12/15/23 11:35 STATUS: YADY LENY #: [id number] RABIA: 12/15/23 10:[address]: Donna Melendez DEPT: SURGICAL PATHOLOGY RECD BY: Yoli Davalos ENTERED: 12/15/23 12:18 SP TYPE: EGD BIOPSY DERIAN DR: Nitza Espinoza, LIZ Tissues: Gastric mucous membrane Procedures: Surgery Specimen Level IV HEADER OPERATION: EGD and biopsy PRE-OP DIAGNOSIS: GERD TISSUE SUBMITTED: Antral biopsy MICROSCOPIC DIAGNOSIS Antral biopsy: Mild gastritis. See microscopic description and comment. YADI/ 12/16/2023 COMMENT The results of immunohistochemistry for Helicobacter pylori will be reported separately ([id number]). MICROSCOPIC DESCRIPTION Slides are reviewed. The specimen shows fragments of gastric mucosa with chronic inflammatory cell infiltrates in the lamina propria consisting of lymphocytes and plasma cells, consistent with mild chronic gastritis. GROSS DESCRIPTION Received in fixative is one container labeled with the patient's name and designated Antral biopsy. The specimen consists of one irregular fragment of [place] soft tissue that measures 0.3 x 0.2 x 0.1 cm. The specimen is totally submitted in one cassette. AM/mr 12/15/2023 TC:3 CPT:25640
--- NOTE | 2023-12-15 10:00 | IMM_PTH ---
PATIENT: BRANNON ZARAGOZA LOC: EN U#:[id number] AGE/SX: 33/F ROOM: RE12/15/[address]: Dr. Donna Melendez MD : 1990 BED: DIS: 12/15/2023 SPEC #: [id number] RECD: 12/15/23 13:24 STATUS: YADY REConcepción #: [id number] RABIA: 12/15/23 10:[address]: Donna Melendez DEPT: IMMUNOHISTOCHEMISTRY RECD BY: Ervin Jo ENTERED: 12/15/23 13:25 SP TYPE: IMMUNO OTHR DR: Nitza Espinoza, SORIN-Radha Tissues: Gastric mucous membrane Procedures: H Pylori (initial) PHYSICIAN & INSTITUTION [place] [id number] SPECIMEN INFORMATION: Tissue Source: Antral biopsy Clinical Info: GERD Specimen Number: [id number] CPT code: 63334 METHODOLOGY: Deparaffinized sections of prefer/formalin-fixed tissue or PAP/DQ stained slides are incubated with monoclonal/polyclonal antibodies/oligonucleotide probes. Localization is made via biotin free immunoperoxidase method. Appropriate controls are performed and reacted as expected. Results on target cell population are indicated in the following table: RESULTS: ANTIBODY / CLONE RESULT H Pylori (polyclonal) negative These tests were developed and their performance characteristics determined by [facility]. They may not have been cleared or approved by the U.S. Food and Drug Administration. The FDA has determined that such clearance or approval is not necessary. The above immunohistochemical/dualISH markers are ordered and reviewed by the Pathologist. INTERPRETATION: Gastric antrum, biopsy: Negative for Helicobacter pylori organisms. YADI/ 12/16/2023
--- NOTE | 2023-12-15 10:04 | PCM.POST.ANE ---
Anesthesia: Postop Eval I Current Vital Signs Temperature: 97.4 F Pulse Rate: 83 Blood Pressure: 136/42 Respiratory Rate: 18 Pulse Ox: 100 Oxygen Delivery Method: Nasal Cannula Oxygen Flow Rate (L/min): 2 Assessment Airway patent: Yes Spontaneous unlabored respirations: Yes Mental status: Awake and Calm nausea: No Vomiting: No Anesthesia Complication: No Fluid Hydration Crystalloid volume administer (ml): 600 Total IV fluid infused: 600 Progress Note Anesthesia document: Postop Eval 1 completed: Yes
[2023-12-15 10:05] VITALS: BP 126/88; BP 133/53; BP 136/42; PULSE 76; PULSE 83; RESP 16; RESP 18; TEMP 36.3; O2SAT 100
[2023-12-15 10:10] VITALS: BP 126/88; BP 136/45; PULSE 87; RESP 16; TEMP 36.2; O2SAT 100
[2023-12-15 10:34] VITALS: BP 126/88
--- NOTE | 2023-12-15 10:56 | PCM.POSTANE2 ---
Anesthesia Postop Eval I Sum Postop Eval Completion status Anesthesia document: Postop Eval 1 completed: Yes Anesthesia Postop Eval I Summary Anesthesia Postop Eval I Summary: Anesthesia Postop Eval I: Assessment Summary Airway patent Yes 12/15/23 10:05 [email or web address] Spontaneous unlabored Yes 12/15/23 10:05 [email or web address] respirations Mental status Awake,Calm 12/15/23 10:05 [email or web address] nausea No 12/15/23 10:05 [email or web address] Vomiting No 12/15/23 10:05 [email or web address] Anesthesia Postop Eval I: Fluid Summary Crystalloid volume administer 600 12/15/23 10:05 [email or web address] (ml) Colloids volume administered ( ml) Blood Product volume administered (ml) Total IV fluid infused 600 12/15/23 10:05 [email or web address] Anesthesia Postop Eval I: Summary Notes Anesthesia Complication No 12/15/23 10:05 [email or web address] Anesthesia Complication Comment: Post-operative progress note Anesthesia: Postop Eval II Evaluation Mental status: Awake Pain Level: 0 nausea: No Vomiting: No Complications Anesthesia Complication: No
== END 2023-12-15 10:43 | disposition home or self-care (01) ==
LOC: EN 08:40 → AC 08:41
PROVIDERS: Anesthesiology; PCP Nurse Practitioner Adult Health; Referring Provider Nurse Practitioner Adult Health; Visit Provider Surgery
PROC: 0DJ08ZZ Inspection of Upper Intestinal Tract, Via Natural or Artificial Opening Endoscopic (ICD-10-PCS; CPT 43235; principal; 2023-12-15 09:55)
DX: K21.9 Gastro-esophageal reflux disease without esophagitis (principal); R12 Heartburn; Z80.0 Family history of malignant neoplasm of digestive organs; K31.89 Other diseases of stomach and duodenum; K22.89 Other specified disease of esophagus; Z90.49 Acquired absence of other specified parts of digestive tract
CPT/HCPCS: 43239; 81025; 88305; 88342; J7120; J2405

== ENCOUNTER → 2025-02-15 | Outpatient (CLI) | payer BC, SELFPAY ==
--- NOTE | 2025-02-15 11:57 | RAD_ITS ---
PROCEDURE: ABD INC DECUB AND/OR ERECT 02/15/2025 REASON FOR EXAM: CONSTIPATION, BLOATING, PAIN TECHNIQUE: ABD INC DECUB AND/OR ERECT COMPARISON: CT Abdomen and Pelvis w/Contrast, 01/23/2021 FINDINGS: LUNG BASES: Lung bases clear where seen. BOWEL: The bowel gas pattern is unremarkable. No bowel obstruction. Moderate stool in the ascending colon. PERITONEUM/SOFT TISSUES: No appreciable free air. Two calcified phleboliths again seen in the left pelvis. BONES: No acute osseous abnormality. RAD/Abd Inc Decub and/or Erect IMPRESSION: No acute abnormalities. IMPRESSION: NO ACUTE FINDINGS Reading Location: [id number]
== END | disposition home or self-care (01) ==
PROVIDERS: PCP Nurse Practitioner Adult Health; Referring Provider Nurse Practitioner Acute Care; Visit Provider Nurse Practitioner Acute Care
DX: R10.12 Left upper quadrant pain (principal); R14.0 Abdominal distension (gaseous)
CPT/HCPCS: 74019

== ENCOUNTER 2025-03-27 10:56 | Outpatient (RCR) | payer BC, SELFPAY | END 2025-04-03 23:59 | LOC: NS 10:56 | PROVIDERS: PCP Nurse Practitioner Adult Health; Referring Provider Nurse Practitioner Acute Care; Visit Provider Nurse Practitioner Acute Care | DX: Z71.3 Dietary counseling and surveillance (principal); R10.12 Left upper quadrant pain; R14.0 Abdominal distension (gaseous) | CPT/HCPCS: 97802 ==

== ENCOUNTER 2025-05-14 15:49 | Outpatient (RCR) | payer BC, SELFPAY | END 2025-06-03 23:59 | LOC: NS 15:49 | PROVIDERS: PCP Nurse Practitioner Adult Health; Referring Provider Nurse Practitioner Acute Care; Visit Provider Nurse Practitioner Acute Care | DX: Z71.3 Dietary counseling and surveillance (principal); R10.12 Left upper quadrant pain; R14.0 Abdominal distension (gaseous) | CPT/HCPCS: 97803 ==

== ENCOUNTER 2025-06-13 12:47 | Day surgery (SDC) | payer BC, SELFPAY ==
[2025-06-13] VITALS (9 sets, daily range): BP systolic 111–120; BP diastolic 70–77; PULSE 57–77; RESP 18–20; TEMP 36.2–36.8; O2SAT 96–100; BMI 44.0
[2025-06-13] MEDS: Lactated Ringers 1,000 ML 15 ML IV (13:19)
[2025-06-13 13:20] LABS: Internal QC Validated? YES +Cl - CLEAR BKGD; Pregnancy, Urine Negative Negative
--- NOTE | 2025-06-13 13:25 | PRE.ANES_ITS ---
ASA Classification* ASA Classification ASA Classification: 3 Assessment & Plan Anesthesia* Anesthesia Assessment Anesthesia Assessment: Discussed sedation and/or anesthesia options, risks, benefits, and alternatives with patient/parents/legal guardian/POA. Questions invited. The patient/parents/legal guardian/POA seems to understand and agrees to proceed with anesthesia plan. Reviewed the physical assessment, medical history, allergy history and patient home medications list prior to surgery/procedure/anesthetic and documented any changes. Performed airway and anesthesia risk assessments. Anesthesia Type Anesthesia Type: MAC History Source History Obtained from:: Patient and Chart Anesthesia Focused Assessment* Temperature: 98.2 F Pulse Rate: 77 Blood Pressure: 120/73 Respiratory Rate: 18 Pulse Ox: 99 Oxygen Delivery Method: Room Air Airway Assessment Mouth opens: >3 cm Mallampati Score: II Teeth Condition: Intact Labs Anesthesia Preop lab: CBC WBC, (4.4-11.0) 9.4 K/mm3 01/23/21, 17:10 RBC, (4.2-5.4) 4.96 M/mm3 01/23/21, 17:10 Hgb, (12.0-15.0) 13.7 g/dL 01/23/21, 17:10 Hct, (37-47) 42.0 % 01/23/21, 17:10 Plt Count, (150-450) 341 K/mm3 01/23/21, 17:10 CHEMISTRY Potassium, (3.5-5.1) 3.6 mmol/L 01/23/21, 17:10 Sodium, (136-145) 140 mmol/L 01/23/21, 17:10 BUN, (7-18) 13 mg/dL 01/23/21, 17:10 Creatinine, (0.55-1.02) 0.93 mg/dL 01/23/21, 17:10 Glucose, (74-106) 104 mg/dL 01/23/21, 17:10 COAG PT, (11.7-14.9) 12.9 SECONDS 09/02/17, 11:47 Urine Test Negative Negative Today, 12:55 Pre-Assessment Diagnosis/Proposed Procedure Planned Operative Procedure(s): EGD Anesthesia History 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 When Was Last Pacemaker Check QUESTION #4 FULL TEXT: You/Your Family Experience fever (hyperthermia) with Anesthesia Last Oral Intake Last Oral intake: Last Oral Intake NPO since 09:00 06/13/25 13:12 Meds taken in AM with sips of No 06/13/25 13:12 water? Meds patient instructed to take am of surgery PONV PONV - travel counselor [employer]: PONV - travel counselor [employer] Female Yes 06/12/25 08:43 HX of Motion Sickness No 06/12/25 08:43 HX of N/V After Surgery Yes 06/12/25 08:43 Non-Smoker Yes 06/12/25 08:43 Duration of Surgery greater No 06/12/25 08:43 than 60 minutes Number of Risk Factors 3 06/12/25 08:43 PONV Score Moderate Risk 06/12/25 08:43 Height & Weight Height & Weight: Anesthesia: Height & Weight Height 5 ft 5 in 06/13/25 13:12 Weight: 120 kg 06/13/25 13:12 Body Mass Index (BMI) 44.0 06/13/25 13:12 Respiratory Assessment Respiratory Assessment - travel [employer]: Respiratory Tract Infection Hx - travel [employer] Hx Respiratory Tract Infection No 06/12/25 08:43 STOP Sleep Apnea STOP Sleep Apnea - travel [employer]: STOP Sleep Apnea - travel [employer] Hx Hypertension No 06/12/25 08:43 Hx Sleep Apnea No 06/12/25 08:43 CPAP BIPAP Do you snore loudly (louder No 06/12/25 08:43 than talking or can be heard Do you often feel tired/ No 06/12/25 08:43 fatigued/ sleepy during daytime? Has anyone observed you stop No 06/12/25 08:43 breathing during sleep? STOP Results Negative 06/12/25 08:43 QUESTION #5 FULL TEXT : Do you snore loudly (louder than talking or can be heard through closed doors)? Tobacco Use History Tobacco Use History - travel counselor [employer]: Tobacco Use History - travel counselor [employer] Tobacco Use Smoking Status Never smoker 06/12/25 08:43 Hx Tobacco Use No 06/12/25 08:43 Years Smoking Packs Smoked per Day Smoking Cessation Date was within the last 15 years Hx Smoking Cessation Date Hx Smoking Cessation Counseling Hematologic Medial History Hematologic Hx - travel counselor [employer]: Hematologic Medical Hx - training and documentation specialist Hx of Blood Transfusion No 06/12/25 08:43 Hx of Transfusion in last 3 No 06/12/25 08:43 Months Date of Last Transfusion (if within last 3 months) Ever experience any problems No 06/12/25 08:43 with transfusion(s)? Specify any problems Hx of Preganancy in last 3 No 06/12/25 08:43 Months Nurse Filling Out Transfusion [email or web address] 06/12/25 08:43 & Questions: Date: 06/12/25 06/12/25 08:43 Time: 08:45 06/12/25 08:43 Patient unable to answer at this time (ie. confused, unrespo /Reproduction History /Reproductive History - [employer]: /Reproductive Hx- travel [employer] Hx Now No 06/12/25 08:43 Gestational Age (in weeks): EDC: Hx Hx Para Hx Section SAB No 06/12/25 08:43 Does the father of the baby or his family experience fever w Father of the baby Malignant Hypertension history comment Active Medications Active Medications: Current Medications Generic Name Dose Route Start Last Admin Trade Name Freq PRN Reason Stop Dose Admin Lactated Ringer's 1,000 mls @ 15 mls/hr 06/13/25 13:00 06/13/25 13:19 IV 15 mls/hr .Q48H SALVADOR Administration PFSH Medical History Vitamin deficiency Gallstones History of back problems UTI (urinary tract infection) Irregular menstrual cycle Goiter History of gallstones Dysmetabolic syndrome Depression Acquired acanthosis nigricans Abnormal Pap smear of cervix Wears glasses Dietary restriction Gastric reflux Non-smoker Migraine Home Medications ?Medication ?Instructions ?Recorded ?Last Taken ?Type norethindrone (contraceptive) 0.35 0.35 mg PO DAILY bc 01/23/21 06/12/25 History mg tablet topiramate 100 mg tablet (Topamax) 100 mg PO DAILY 06/12/25 History Hydrocortisone 2.5%/lidocaine 5% #30 ea 02/08/25 Unkno wn Rx suppository (cmpd) (hydrocortisone 2.5%/lidocaine 5% suppository (compound)) acyclovir 400 mg tablet 400 mg PO QDAY PRN flare up 02/12/25 Unknown History epinephrine 0.3 mg/0.3 mL 0.3 mg IM Q5-15M PRN 5 Unknown History injection, auto-injector (EpiPen) bronchodilation naproxen 500 mg tablet 500 mg PO BID PRN pain 02/12 Unknown History rimegepant 75 mg disintegrating 75 mg PO ONCE PRN migr zohra headache 02/12/25 Unknown History tablet ondansetron HCl 4 mg tablet 4 mg PO Q8H PRN nausea and 06/05/25 06/12/25 Rx vomiting #20 tabs omeprazole 40 mg capsule,delayed 40 mg PO BID #60 caps 06/11/25 06/12/25 Rx release sucralfate 1 gram tablet 1 g PO QACHS #56 tabs 06/12/25 Rx Allergy/AdvReac Type Severity Reaction Status Date / Time Food Allergies: Uncoded Allergy Severe Anaphylaxis Verified 06/13/25 13:26 hydromorphone (From Dilaudid) Allergy Rash Verified 06/13/25 13:10 morphine Allergy Rash Verified 06/13/25 13:10 Family History Grandmother Breast cancer Colon cancer Diabetes Father Diabetes Daughter Seizures Surgical History H/O esophagogastroduodenoscopy Hx of ovarian cystectomy History of colonoscopy History of History of cholecystectomy Social History current occupational status: employed Smoking Status: Never smoker alcohol intake: never substance use type: does not use what type of physical activity do you participate in: none do you feel safe at home: Yes Addt'l Information Additional Findings: > 4 METS Review of Systems (Anesthesia) ROS Narrative System reviewed and no additional complaints, except as documented. Physical Exam Const alert and oriented x3 Orientation / Consciousness: awake Nutritional Appearance: morbidly obese HEENT dentition normal Neck full ROM Resp normal respiratory effort, normal air movement and clear to auscultation bilaterally Cardio regular rate and regular rhythm
--- NOTE | 2025-06-13 13:40 | HP.PCM_ITS ---
History and Physical Date of Admission: 06/13/25 Date of Service: 06/11/2025 MR#: [id number] Acct: [id number] Name: BRANNON ZARAGOZA Rep #: [id number] : 1990 Provider: BERNADINE Baig Age/Sex: 34/F Location: [facility] [address] Status: Signed Intake Vital Signs 06/11/2510:51 06/11/2511:48 Height 5 ft 5 in 5 ft 5 in Weight: 264 lb BMI 43.9 BP 137/83 H Blood Pressure Location Rt brachial Position Sitting Respiration 17 Pulse 74 Pulse Source Monitor Pulse Oximetry (%) 99 Oxygen Delivery Method room air Intake Visit Reasons: Amb Documentation Chief Complaint: EGD Allergies hydromorphone (From Dilaudid) Allergy (Verified 06/12/25 08:40) Rash morphine Allergy (Verified 06/12/25 08:40) Rash PFSH Medical History (Updated 06/12/25 @ 08:48 by Beka Zhao) Vitamin deficiency Gallstones History of back problems UTI (urinary tract infection) Irregular menstrual cycle Goiter History of gallstones Dysmetabolic syndrome Depression Acquired acanthosis nigricans Abnormal Pap smear of cervix Wears glasses Dietary restriction Gastric reflux Non-smoker Migraine Surgical History (Updated 06/12/25 @ 08:48 by Beka Zhao) H/O esophagogastroduodenoscopy Hx of ovarian cystectomy History of colonoscopy History of History of cholecystectomy Family History Grandmother Breast cancer Colon cancer Diabetes Father Diabetes Daughter Seizures Social History current occupational status: employed Smoking Status: Never smoker alcohol intake: never substance use type: does not use what type of physical activity do you participate in: none do you feel safe at home: Yes HPI HPI HPI: 34-year-old female presents for left upper quadrant pain, nausea and vomiting. Patient had previous EGD by myself in December 2023 was started on Protonix at that time. Patient states it did get worse in November and February of this year she did get some Carafate at that time which did help and then got a referral to GI. Patient has been seen at the GI clinic they did increased her Protonix to twice daily in April. Patient did try to stop the twice daily and just do daily for a couple days and since then she has had nausea and vomiting she states has been worse in the last 2 weeks states she has lost about 5 to 6 pounds in the last week as she is only able to eat small amounts and still has nausea vomiting with that does have Zofran and is taking the Protonix twice daily. Patient is hide gastric emptying study ordered by GI however unable to get a scope in the near future due to their schedules being booked. ROS General General: Yes weight change; No appetite, fatigue, colon cancer, breast cancer or weakness HEENT HEENT: No difficulty swallowing, eye injury, eye surgery, swollen glands or hoarseness Endo Endocrine: No thyroid disease, diabetes mellitus, thyroid cancer, Hair loss, heat intolerance or cold intolerance Skin Skin: No rash or changing moles Musc Musculoskeletal: No back problems, arthritis, rheumatoid arthritis, gout or joint pain Cardio Cardiovascular: No murmur, pacemaker, heart disease, atrial fibrillation, high blood pressure, heart attack, heart stent, palpitations, shortness of breath with exertion or chest pain Psych Psychiatric: No depression, anxiety or hearing voices Resp Respiratory: No shortness of breath, No sleep apnea, No cough, No COPD, No asthma, No emphysema and No wheezing Gastro Gastrointestinal: No abdominal pain, No nausea or vomiting, No diarrhea, No constipation, No blood in stool, Yes acid reflux, Yes hemorrhoids, No ulcers, No gallbladder problem and No black,tarry stools Dain Hematologic: No blood thinners, No blood disorders, No bleeding, No anemia and No blood clots Neuro Neurologic: No system reviewed and no additional complaints, except as documented, No as per HPI, No abnormal gait, No abnormal hearing, No abnormal movements, No abnormal speech, No behavioral changes, No burning sensations, No confusion, No convulsions, No disequilibrium, No dizziness, No localized weakness, No frequent falls, No headache(s), No lack of coordination, No loss of vision, No memory loss, No numbness, No other visual disturbances, No radicular pain, No restless legs, No sensory deficit, No syncope, No tingling, No tremor(s), No weakness and No other Exam Const General: cooperative, healthy appearing, comfortable and no acute distress [facility] Head: normocephalic and atraumatic Neck Neck: supple Resp Effort & Inspection: normal respiratory effort Cardio Rate: regular rate GI Inspection: non-distended Palpation: soft and tender (mild) in the epigastrum and in the LUQ; with no r ebound tenderness Skin General: no rashes or lesions noted Neuro General: CN's II-XI intact bilaterally Extrem General: normal to inspection Psych Mental Status: mental status grossly normal Attitude: cooperative Assessment and Plan Assessment and Plan (1) GERD (gastroesophageal reflux disease): Status: Acute (2) LUQ abdominal pain: Status: Acute (3) Nausea: Status: Acute Medications: Discontinued pantoprazole Discontinued Reason: Order Changed 40 mg PO BID 90 days 180 tabs 1RF Plan Stop the pantoprazole and changed to omeprazole will start initial twice daily and plan to go do daily also gave Carafate. I have discussed the above with the patient. I have offered the patient esophagogastroduodenoscopy for evaluation. I have explained the risks/benefits of the procedure and described the procedure. I have discussed the risks with the patient, including but not limited to: infection, bleeding, perforation of the GI tract requiring emergency surgery, inability to complete the procedure, injury to any internal organs, complications of anesthesia, etc. - the patient understands and agrees to proceed. I have answered all the patient's questions to the patient's satisfaction and the patient has no further questions. Donna Melendez M.D. Pager: [phone] [facility] [address] [place] [address] [address] [place] [address] Office: [phone] Coding Level of Care Code Off vis,est,level 3 Diagnoses GERD (gastroesophageal reflux disease) K21.9 LUQ abdominal pain R10.12 Nausea R11.0 06/12/25 1302 <Electronically signed by Donna Melendez MD> Date Donna Melendez MD
--- NOTE | 2025-06-13 14:00 | EGD_PTH ---
PATIENT: BRANNON ZARAGOZA LOC: EN U#:[id number] AGE/SX: 34/F ROOM: RE06/13/[address]: Dr. Donna Melendez MD : 1990 BED: DIS: 06/13/2025 SPEC #: [id number] RECD: 06/13/25 16:01 STATUS: YADY LENY #: [id number] RABIA: 06/13/25 14:[address]: Donna Melendez DEPT: SURGICAL PATHOLOGY RECD BY: Ervin Jo ENTERED: 06/14/25 09:54 SP TYPE: EGD BIOPSY DERIAN DR: Nitza Espinoza, LIZ Tissues: A - Gastric mucous membrane Procedures: Immunohistochemical Stains Surgery Specimen Level IV HEADER OPERATION: EGD with biopsy PRE-OP DIAGNOSIS: GERD, left upper quadrant abdominal pain, nausea TISSUE SUBMITTED: A- Antrum biopsy MICROSCOPIC DIAGNOSIS A. Stomach, antrum, biopsy: - Chronic gastritis. - IHC negative for H. pylori organisms. MICROSCOPIC DESCRIPTION Slides are reviewed. All matched controls reacted appropriately. These tests were developed and their performance characteristics determined by [facility]. They may not have been cleared or approved by the U.S. Food and Drug Administration. The FDA has determined that such clearance or approval is not necessary. The above immunohistochemical markers and/or special?stains have been reviewed by the Pathologist. GROSS DESCRIPTION A. Received in fixative is one container labeled with the patient's name and designated Antrum biopsy. The specimen consists of one irregular fragment of park tissue that measures 0.8 cm. The specimen is totally submitted in one cassette. GA 06/14/2025 CPT:11486,86483
--- NOTE | 2025-06-13 15:52 | OP.PROVAT_ITS ---
06/13/2025 Nitza Espinoza Re : Upper GI endoscopy procedure for Yareli Jesus Olga This procedure was performed on Friday, June 13, 2025. My impressions and recommendations are as follows: Impressions : - Normal esophagus. - Normal stomach. - Normal examined duodenum. - Biopsies were taken with a cold forceps for Helicobacter pylori testing. Recommendations : - Discharge patient to home (ambulatory). - Resume previous diet. - Continue present medications. My findings are described in the full procedure note, which is enclosed. If I can be of further assistance, please feel free to contact me at Doctor phone number(s): , Work: . Sincerely, Phil Helton MD 06/13/2025 3:52:14 PM This report has been signed electronically.
--- NOTE | 2025-06-13 15:52 | OP.EGD_ITS ---
Patient Name: Yareli Alanis Procedure Date: 06/13/2025 3:36 PM Date of : 1990 Age: 34 Procedure: Upper GI endoscopy Indications: Abdominal pain in the left upper quadrant, Nausea with vomiting Providers: Phil Helton MD Referring MD: Nitza Espinoza Medicines: Propofol per Anesthesia Patient Profile: This is a 34 year old female. Refer to note in patient chart for documentation of history and physical. Complications: No immediate complications. Estimated blood loss: Minimal. Procedure: Pre-Anesthesia Assessment: - Prior to the procedure, a History and Physical was performed, and patient medications and allergies were reviewed. The patient's tolerance of previous anesthesia was also reviewed. The risks and benefits of the procedure and the sedation options and risks were discussed with the patient. All questions were answered, and informed consent was obtained. Prior Anticoagulants: The patient has taken no anticoagulant or antiplatelet agents. After reviewing the risks and benefits, the patient was deemed in satisfactory condition to undergo the procedure. After obtaining informed consent, the endoscope was passed under direct vision. Throughout the procedure, the patient's blood pressure, pulse, and oxygen saturations were monitored continuously. The Endoscope was introduced through the mouth, and advanced to the third part of duodenum. The upper GI endoscopy was accomplished without difficulty. The patient tolerated the procedure well. Scope In: 3:43:50 PM Scope Out: 3:46:49 PM Total Procedure Duration Time 0 hours 2 minutes 59 seconds Findings: The esophagus was normal. The stomach was normal. The examined duodenum was normal. Biopsies were taken with a cold forceps in the gastric antrum for Helicobacter pylori testing. Impression: - Normal esophagus. - Normal stomach. - Normal examined duodenum. - Biopsies were taken with a cold forceps for Helicobacter pylori testing. Recommendation: - Discharge patient to home (ambulatory). - Resume previous diet. - Continue present medications. Procedure Code(s): --- Professional --- 48050, Esophagogastroduodenoscopy, flexible, transoral; with biopsy, single or multiple Diagnosis Code(s): --- Professional --- R10.12, Left upper quadrant pain R11.2, Nausea with vomiting, unspecified CPT copyright 2021 [employer]. All rights reserved. The codes documented in this report are preliminary and upon transactional attorney review may be revised to meet current compliance requirements. Phil Helton MD 06/13/2025 3:52:14 PM This report has been signed electronically. Number of Addenda: 0 Note Initiated On: 06/13/2025 3:36 PM
--- NOTE | 2025-06-13 15:53 | PCM.POST.ANE ---
Anesthesia: Postop Eval I Current Vital Signs Temperature: 97.2 F Pulse Rate: 67 Blood Pressure: 120/75 Respiratory Rate: 20 Pulse Ox: 100 Oxygen Delivery Method: Room Air Assessment Airway patent: Yes Spontaneous unlabored respirations: Yes Mental status: Awake and Calm nausea: No Vomiting: No Anesthesia Complication: No Fluid Hydration Crystalloid volume administer (ml): 200 Total IV fluid infused: 200 Progress Note Anesthesia document: Postop Eval 1 completed: Yes
--- NOTE | 2025-06-13 17:36 | POSTOPAN2_ITS ---
Anesthesia Postop Eval I Sum Postop Eval Completion status Anesthesia document: Postop Eval 1 completed: Yes Anesthesia Postop Eval I Summary Anesthesia Postop Eval I Summary: Anesthesia Postop Eval I: Assessment Summary Airway patent Yes 06/13/25 15:54 SENIOR [email or web address] [email or web address] Spontaneous unlabored Yes 06/13/25 15:54 SENIOR POWER [email or web address] respirations Mental status Awake,Calm 06/13/25 15:54 SENIOR POWER [email or web address] nausea No 06/13/25 15:54 SENIOR POWER [email or web address] Vomiting No 06/13/25 15:54 SENIOR POWER [email or web address] Anesthesia Postop Eval I: Fluid Summary Crystalloid volume administer 200 06/13/25 15:54 SENIOR POWER [email or web address] (ml) Colloids volume administered ( ml) Blood Product volume administered (ml) Total IV fluid infused 200 06/13/25 15:54 SENIOR POWER [email or web address] Anesthesia Postop Eval I: Summary Notes Anesthesia Complication No 06/13/25 15:54 SENIOR POWER [email or web address] Anesthesia Complication Comment: Post-operative progress note Anesthesia: Postop Eval II Evaluation Mental status: Awake and Calm Pain Level: 0 nausea: No Vomiting: No Complications Anesthesia Complication: No
--- NOTE | 2025-06-13 17:36 | PCM.POSTANE2 ---
Anesthesia Postop Eval I Sum Postop Eval Completion status Anesthesia document: Postop Eval 1 completed: Yes Anesthesia Postop Eval I Summary Anesthesia Postop Eval I Summary: Anesthesia Postop Eval I: Assessment Summary Airway patent Yes 06/13/25 15:54 CPR [email or web address] Spontaneous unlabored Yes 06/13/25 15:54 CPR [email or web address] respirations Mental status Awake,Calm 06/13/25 15:54 CPR [email or web address] nausea No 06/13/25 15:54 CPR [email or web address] Vomiting No 06/13/25 15:54 CPR [email or web address] Anesthesia Postop Eval I: Fluid Summary Crystalloid volume administer 200 06/13/25 15:54 CPR [email or web address] (ml) Colloids volume administered ( ml) Blood Product volume administered (ml) Total IV fluid infused 200 06/13/25 15:54 CPR [email or web address] Anesthesia Postop Eval I: Summary Notes Anesthesia Complication No 06/13/25 15:54 CPR [email or web address] Anesthesia Complication Comment: Post-operative progress note Anesthesia: Postop Eval II Evaluation Mental status: Awake and Calm Pain Level: 0 nausea: No Vomiting: No Complications Anesthesia Complication: No
== END 2025-06-13 16:24 | disposition home or self-care (01) ==
LOC: EN 12:49 → AC 12:51
PROVIDERS: Anesthesiology; Surgery; PCP Nurse Practitioner Adult Health; Referring Provider Nurse Practitioner Adult Health; Visit Provider Surgery
PROC: 0DJ08ZZ Inspection of Upper Intestinal Tract, Via Natural or Artificial Opening Endoscopic (ICD-10-PCS; CPT 43235; principal; 2025-06-13 13:55)
DX: R10.12 Left upper quadrant pain (principal); K21.9 Gastro-esophageal reflux disease without esophagitis; Z79.899 Other long term (current) drug therapy; Z90.6 Acquired absence of other parts of urinary tract; Z90.49 Acquired absence of other specified parts of digestive tract; Z80.0 Family history of malignant neoplasm of digestive organs; R11.2 Nausea with vomiting, unspecified; K29.50 Unspecified chronic gastritis without bleeding
CPT/HCPCS: 43239; 81025; 88305; 88342